=== PATIENT | male | born 1950 | race Caucasian/White ===

== ENCOUNTER 2016-10-24 12:25 | Day surgery (SDCO) | payer OTHER ==
[~2016-10-24] VITALS: Ht 167.6 cm; Wt 87.1 kg
[2016-10-24 13:14] LABS: BASOPHIL 0.2 % (0-2); EOSINOPHIL 0.1 % (0-7); HCT 36.2 % (42.0-52.0); HGB 12.7 g/dl (13.2-18.0); LYMPHOCYTE 28.1 % (15-48); MCH 32.2 pg (25.0-31.0); MCHC 35.1 g/dL (32.0-36.0); MCV 91.9 fL (78.0-100.0); MONOCYTE 8.8 % (0-12); NEUTROPHIL 62.8 % (41-80); PLT 388 K/uL (150-400); RBC 3.94 M/uL (4.70-6.00); RDW 13.8 % (11.5-14.0); WBC 12.2 K/uL (4.0-10.5)
[2016-10-24 13:24] LABS: INR 1.13 (0.9-1.2); PROTHROMBIN TIME 14.1 SECONDS (11.7-14.0); PTT 26.4 SECONDS (23.2-31.4)
[2016-10-24 13:37] LABS: BILIRUBIN NEGATIVE (NEGATIVE); BLOOD NEGATIVE Ery/uL (NEGATIVE); CLARITY CLEAR (CLEAR); COLOR YELLOW (YELLOW); GLUCOSE (U) NORMAL (NORMAL); KETONE (U) NEGATIVE (NEGATIVE); LEUKOCYTES NEGATIVE Leu/uL (NEGATIVE); NITRITE NEGATIVE (NEGATIVE); PROTEIN NEGATIVE (NEGATIVE); UROBILINOGEN 0.2 mg/dL (0.2-1.0); pH 5.5 (5.0-9.0)
[2016-10-24 13:41] LABS: ALBUMIN 4.2 g/dL (3.4-4.8); BILIRUBIN - TOTAL 0.9 mg/dL (0.1-1.0); CREATININE 0.9 mg/dL (0.7-1.2); GLOBULIN (CALCULATION) 2.5 g/dL (2.2-4.2); LACTIC ACID 2.4 mmol/L (0.5-2.2); POTASSIUM 5.2 mmol/L (3.5-5.1); TOTAL PROTEIN 6.7 g/dL (6.4-8.3)
[2016-10-24 23:07] LABS: HCT 32.8 % (42.0-52.0); HGB 11.4 g/dl (13.2-18.0); MCH 32.1 pg (25.0-31.0); MCHC 34.8 g/dL (32.0-36.0); MCV 92.4 fL (78.0-100.0); MPV 8.8 fL (6.0-9.5); RBC 3.55 M/uL (4.70-6.00); RDW 14.1 % (11.5-14.0); WBC 10.9 K/uL (4.0-10.5)
[2016-10-25 04:29] LABS: HCT 30.5 % (42.0-52.0); HGB 10.6 g/dl (13.2-18.0); MCH 32.5 pg (25.0-31.0); MCHC 34.8 g/dL (32.0-36.0); MCV 93.6 fL (78.0-100.0); MPV 8.7 fL (6.0-9.5); RBC 3.26 M/uL (4.70-6.00); WBC 7.7 K/uL (4.0-10.5)
[2016-10-25 04:39] LABS: CREATININE 0.9 mg/dL (0.7-1.2); MAGNESIUM 2.04 mg/dL (1.40-2.10); POTASSIUM 4.4 mmol/L (3.5-5.1)
[2016-10-25 23:54] LABS: HCT 32.8 % (42.0-52.0); HGB 10.9 g/dl (13.2-18.0); MCH 31.5 pg (25.0-31.0); MCHC 33.2 g/dL (32.0-36.0); MCV 94.8 fL (78.0-100.0); MPV 8.6 fL (6.0-9.5); RBC 3.46 M/uL (4.70-6.00); RDW 14.5 % (11.5-14.0); WBC 8.4 K/uL (4.0-10.5)
[2016-10-26 04:42] LABS: HGB 11.4 g/dl (13.2-18.0); MCH 32.9 pg (25.0-31.0); MCHC 34.5 g/dL (32.0-36.0); MCV 95.1 fL (78.0-100.0); MPV 8.8 fL (6.0-9.5); RBC 3.47 M/uL (4.70-6.00); RDW 14.6 % (11.5-14.0); WBC 8.5 K/uL (4.0-10.5)
[2016-10-26 05:04] LABS: CREATININE 0.9 mg/dL (0.7-1.2); POTASSIUM 3.8 mmol/L (3.5-5.1)
[2016-10-27 04:29] LABS: HCT 27.1 % (42.0-52.0); HGB 9.2 g/dl (13.2-18.0); MCHC 33.9 g/dL (32.0-36.0); MCV 97.1 fL (78.0-100.0); MPV 8.3 fL (6.0-9.5); RBC 2.79 M/uL (4.70-6.00); RDW 14.8 % (11.5-14.0); WBC 5.6 K/uL (4.0-10.5)
[2016-10-27 04:39] LABS: CREATININE 0.8 mg/dL (0.7-1.2); POTASSIUM 3.8 mmol/L (3.5-5.1)
[2016-10-27] MEDS ORDERED: PROTONIX 40MG T40 MG PO (11:27)
[2016-10-27] MEDS ORDERED: BETAPACE80 MG PO (11:27)
[2016-10-27] MEDS ORDERED: LIPITOR40 MG PO (11:28)
[2016-10-27] MEDS ORDERED: BUSPIRONE HCL15 MG PO (11:31)
[2016-10-27] MEDS ORDERED: ADVAIR 250-501 EACH INH (11:31)
[2016-10-27] MEDS ORDERED: ASPIRIN CHEWABL81 MG PO (11:31)
[2016-10-27] MEDS ORDERED: NITROQUIK SL0.4 MG SL (11:32)
[2016-10-27] MEDS ORDERED: COMBIVENT RESPIM4 GM INH (11:32)
[2017-03-30] MEDS ORDERED: COZAAR 25MG TAB25 MG PO (11:30)
[2017-03-30] MEDS ORDERED: CARDIZEM CD120 MG PO (12:54)
[2017-03-30] MEDS ORDERED: VENTOLIN HFA18 GM INH (13:30)
[2017-03-30] MEDS ORDERED: AMIODARONE HCL200 MG PO (13:31)
[2017-03-30] MEDS ORDERED: K-DUR20 MEQ PO (13:32)
[2017-03-30] MEDS ORDERED: XARELTO20 MG PO (13:32)
[2017-03-30] MEDS ORDERED: CLARITIN10 MG PO (13:32)
[2017-03-30] MEDS ORDERED: TOPROL XL50 MG PO (13:33)
== END 2016-10-27 13:32 | disposition home or self-care (01) ==
LOC: FER 12:25 → FMS 17:01
PROVIDERS: Emergency Medicine; Internal Medicine; ADMIT Internal Medicine Nephrology
DX: K29.50 Unspecified chronic gastritis without bleeding (principal); K21.9 Gastro-esophageal reflux disease without esophagitis; K57.30 Diverticulosis of large intestine without perforation or abscess without bleeding; I10 Essential (primary) hypertension; I25.10 Atherosclerotic heart disease of native coronary artery without angina pectoris; I48.92 Unspecified atrial flutter; F41.9 Anxiety disorder, unspecified; F32.9 Major depressive disorder, single episode, unspecified; J44.9 Chronic obstructive pulmonary disease, unspecified; Z95.5 Presence of coronary angioplasty implant and graft; Z90.49 Acquired absence of other specified parts of digestive tract; Z87.891 Personal history of nicotine dependence; Z80.1 Family history of malignant neoplasm of trachea, bronchus and lung; Z82.49 Family history of ischemic heart disease and other diseases of the circulatory system; Z82.3 Family history of stroke; Z79.82 Long term (current) use of aspirin; Z79.899 Other long term (current) drug therapy
CPT/HCPCS: 36415; 80048; 80053; 81003; 82150; 83605; 83690; 83735; 84484; 85025; 85610; 85730; 87088; 88305; 88312; 93005; 94010; 94640; C9113; G0378; J2405; J2704; Q9967

== ENCOUNTER 2016-11-09 12:24 | Inpatient (IN) | payer OTHER, SELFPAY ==
[~2016-11-09] VITALS: Ht 170.2 cm; Wt 89.0 kg
[~2016-11-09 12:24] MED LIST: ADVAIR 250-501 EACH INH; ASPIRIN CHEWABL81 MG PO; BETAPACE80 MG PO; BUSPIRONE HCL15 MG PO; COMBIVENT RESPIM4 GM INH; LIPITOR40 MG PO; NITROQUIK SL0.4 MG SL; PROTONIX 40MG T40 MG PO
[2016-11-09 13:18] LABS: BASOPHIL 0.4 % (0-2); EOSINOPHIL 0.4 % (0-7); HCT 28.2 % (42.0-52.0); HGB 8.6 g/dl (13.2-18.0); LYMPHOCYTE 24.7 % (15-48); MCH 30.3 pg (25.0-31.0); MCHC 30.5 g/dL (32.0-36.0); MCV 99.3 fL (78.0-100.0); MONOCYTE 5.4 % (0-12); MPV 8.5 fL (6.0-9.5); NEUTROPHIL 69.1 % (41-80); PLT 546 K/uL (150-400); RBC 2.84 M/uL (4.70-6.00); RDW 16.5 % (11.5-14.0)
[2016-11-09 13:21] LABS: WBC 11.1 K/uL (4.0-10.5)
[2016-11-09 13:38] LABS: ALBUMIN 3.9 g/dL (3.4-4.8); BILIRUBIN - TOTAL 0.4 mg/dL (0.1-1.0); CREATININE 0.8 mg/dL (0.7-1.2); GLOBULIN (CALCULATION) 3.3 g/dL (2.2-4.2); POTASSIUM 4.6 mmol/L (3.5-5.1); TOTAL PROTEIN 7.2 g/dL (6.4-8.3)
[2016-11-09 13:39] LABS: TROPONIN T < 0.010 ng/mL
[2016-11-09 13:41] LABS: PRO-BNP 756 pg/mL (0-125)
[2016-11-09 15:43] LABS: LACTIC ACID 2.4 mmol/L (0.5-2.2)
[2016-11-09 23:10] LABS: BILIRUBIN NEGATIVE (NEGATIVE); BLOOD NEGATIVE Ery/uL (NEGATIVE); CLARITY CLEAR (CLEAR); COLOR YELLOW (YELLOW); GLUCOSE (U) NORMAL (NORMAL); KETONE (U) NEGATIVE (NEGATIVE); LEUKOCYTES NEGATIVE Leu/uL (NEGATIVE); NITRITE NEGATIVE (NEGATIVE); PROTEIN NEGATIVE (NEGATIVE); SPECIFIC GRAVITY >=1.030 (1.001-1.030); UROBILINOGEN 0.2 mg/dL (0.2-1.0); pH 5.5 (5.0-9.0)
[2016-11-10 04:15] LABS: HCT 26.1 % (42.0-52.0); MCH 30.2 pg (25.0-31.0); MCHC 30.7 g/dL (32.0-36.0); MCV 98.5 fL (78.0-100.0); MPV 8.3 fL (6.0-9.5); RBC 2.65 M/uL (4.70-6.00); RDW 16.5 % (11.5-14.0); RETICULOCYTE COUNT 9.5 % (1.0-2.0); WBC 10.8 K/uL (4.0-10.5)
[2016-11-10 04:35] LABS: IRON 35 ug/dL (44-196); IRON % SATURATION 9 %SAT (20-50); TIBC (TOTAL IRON + UIBC) 382 U/L (228-428); UIBC 347 ug/dL (112-346)
[2016-11-10 04:38] LABS: CREATININE 0.8 mg/dL (0.7-1.2); POTASSIUM 4.4 mmol/L (3.5-5.1)
[2016-11-10 04:52] LABS: FOLIC ACID (SERUM) 17.6 ng/mL (5.6-45.8)
--- NOTE | 2016-11-11 01:39 | NUR ---
[address] BOGGS OF PT HAVING A RHYTHM CHANGE AND HEART ELEVATED,ORDERS GIVEN TO GET STAT EKG AND GIVE LOPRESSOR 5 MG IV NOW.
[2016-11-11 04:13] LABS: HCT 25.9 % (42.0-52.0); MCH 30.3 pg (25.0-31.0); MCHC 30.9 g/dL (32.0-36.0); MCV 98.1 fL (78.0-100.0); MPV 8.5 fL (6.0-9.5); RBC 2.64 M/uL (4.70-6.00); RDW 16.6 % (11.5-14.0); WBC 9.1 K/uL (4.0-10.5)
[2016-11-11 04:40] LABS: CREATININE 0.9 mg/dL (0.7-1.2); POTASSIUM 4.2 mmol/L (3.5-5.1)
[2016-11-12 06:54] LABS: HCT 25.8 % (42.0-52.0); MCH 29.8 pg (25.0-31.0); MCHC 30.2 g/dL (32.0-36.0); MCV 98.5 fL (78.0-100.0); MPV 8.9 fL (6.0-9.5); RDW 16.1 % (11.5-14.0); WBC 6.9 K/uL (4.0-10.5)
[2016-11-12 07:00] LABS: HGB 7.8 g/dl (13.2-18.0); RBC 2.62 M/uL (4.70-6.00)
[2016-11-12 07:13] LABS: CREATININE 0.7 mg/dL (0.7-1.2); POTASSIUM 4.1 mmol/L (3.5-5.1)
[2016-11-13 04:57] LABS: HCT 33.3 % (42.0-52.0); MCH 29.6 pg (25.0-31.0); MCHC 31.8 g/dL (32.0-36.0); MPV 8.7 fL (6.0-9.5); RBC 3.58 M/uL (4.70-6.00); RDW 18.2 % (11.5-14.0)
[2016-11-13 05:01] LABS: HGB 10.6 g/dl (13.2-18.0); WBC 15.5 K/uL (4.0-10.5)
[2016-11-13 05:15] LABS: CREATININE 0.8 mg/dL (0.7-1.2); POTASSIUM 4.5 mmol/L (3.5-5.1)
[2016-11-13] MEDS ORDERED: CELEXA40 MG PO (11:30)
[2016-11-13] MEDS ORDERED: HYDROCORTISONE PO (12:52)
[2016-11-13] MEDS ORDERED: FOLIC ACID1 MG PO (12:54)
[2016-11-13] MEDS ORDERED: VITAMIN B-1100 MG PO (12:55)
[2016-11-13] MEDS ORDERED: PREDNISONE 10MG10 MG PO (12:57)
[2016-11-13] MEDS ORDERED: AUGMENTIN 875-1 EACH PO (12:58)
[2017-03-30] MEDS ORDERED: COZAAR 25MG TAB25 MG PO (11:30)
[2017-03-30] MEDS ORDERED: CARDIZEM CD120 MG PO (12:54)
[2017-03-30] MEDS ORDERED: VENTOLIN HFA18 GM INH (13:30)
[2017-03-30] MEDS ORDERED: AMIODARONE HCL200 MG PO (13:31)
[2017-03-30] MEDS ORDERED: XARELTO20 MG PO (13:32)
[2017-03-30] MEDS ORDERED: CLARITIN10 MG PO (13:32)
[2017-03-30] MEDS ORDERED: K-DUR20 MEQ PO (13:32)
[2017-03-30] MEDS ORDERED: TOPROL XL50 MG PO (13:33)
== END 2016-11-13 12:40 | disposition home or self-care (01) | DRG 190 ==
LOC: FER 12:24 → FMS 17:00 → FTCU 17:00
PROVIDERS: Emergency Medicine; Internal Medicine; Internal Medicine Adolescent Medicine; ADMIT Internal Medicine
DX: J44.0 Chronic obstructive pulmonary disease with (acute) lower respiratory infection (principal); J18.9 Pneumonia, unspecified organism; I47.2 Ventricular tachycardia; I48.0 Paroxysmal atrial fibrillation; E87.1 Hypo-osmolality and hyponatremia; J44.1 Chronic obstructive pulmonary disease with (acute) exacerbation; I25.10 Atherosclerotic heart disease of native coronary artery without angina pectoris; Z95.5 Presence of coronary angioplasty implant and graft; D53.9 Nutritional anemia, unspecified; F10.10 Alcohol abuse, uncomplicated; F41.9 Anxiety disorder, unspecified; I10 Essential (primary) hypertension; E78.5 Hyperlipidemia, unspecified; E09.65 Drug or chemical induced diabetes mellitus with hyperglycemia; T38.0X5A Adverse effect of glucocorticoids and synthetic analogues, initial encounter; Z87.891 Personal history of nicotine dependence; Z80.9 Family history of malignant neoplasm, unspecified; Z82.49 Family history of ischemic heart disease and other diseases of the circulatory system
CPT/HCPCS: 36415; 36430; 36600; 71010; 71020; 71250; 80048; 80053; 81003; 82607; 82728; 82746; 82803; 82962; 83540; 83550; 83605; 83880; 84484; 85025; 85044; 86850; 86900; 86901; 86922; 87040; 87070; 87184; 87205; 87449; 87804; 87899; 93005; 94640; G0480; J1940; J1956; J2543; J2930; J3370; P9016

== ENCOUNTER 2016-12-22 02:46 | Emergency (ER) | payer OTHER, SELFPAY ==
[~2016-12-22 02:46] MED LIST changes: +AUGMENTIN 875-1 EACH PO; +CELEXA40 MG PO; +FOLIC ACID1 MG PO; +HYDROCORTISONE PO; +PREDNISONE 10MG10 MG PO; +VITAMIN B-1100 MG PO
[2016-12-22 03:05] LABS: BASOPHIL 0.7 % (0-2); EOSINOPHIL 2.8 % (0-7); HCT 37.8 % (42.0-52.0); HGB 12.2 g/dl (13.2-18.0); LYMPHOCYTE 33.9 % (15-48); MCH 28.4 pg (25.0-31.0); MCHC 32.3 g/dL (32.0-36.0); MCV 88.1 fL (78.0-100.0); MONOCYTE 10.5 % (0-12); MPV 8.2 fL (6.0-9.5); NEUTROPHIL 52.1 % (41-80); PLT 344 K/uL (150-400); RBC 4.29 M/uL (4.70-6.00); RDW 16.5 % (11.5-14.0); WBC 7.2 K/uL (4.0-10.5)
[2016-12-22 03:23] LABS: INR 1.12 (0.9-1.2); PTT 24.4 SECONDS (23.2-31.4)
[2016-12-22 03:25] LABS: ALBUMIN 3.6 g/dL (3.4-4.8); BILIRUBIN - TOTAL 0.3 mg/dL (0.1-1.0); CKMB 2.07 ng/mL (0.97-4.94); GLOBULIN (CALCULATION) 2.4 g/dL (2.2-4.2); MAGNESIUM 1.82 mg/dL (1.40-2.10); TROPONIN T 0.02 ng/mL
[2017-03-30] MEDS ORDERED: COZAAR 25MG TAB25 MG PO (11:30)
[2017-03-30] MEDS ORDERED: CARDIZEM CD120 MG PO (12:54)
[2017-03-30] MEDS ORDERED: VENTOLIN HFA18 GM INH (13:30)
[2017-03-30] MEDS ORDERED: AMIODARONE HCL200 MG PO (13:31)
[2017-03-30] MEDS ORDERED: K-DUR20 MEQ PO (13:32)
[2017-03-30] MEDS ORDERED: XARELTO20 MG PO (13:32)
[2017-03-30] MEDS ORDERED: CLARITIN10 MG PO (13:32)
[2017-03-30] MEDS ORDERED: TOPROL XL50 MG PO (13:33)
== END 2016-12-22 08:20 | disposition other institution (70) ==
LOC: FER 02:46
PROVIDERS: Emergency Medicine
DX: I48.91 Unspecified atrial fibrillation (principal); J44.9 Chronic obstructive pulmonary disease, unspecified; E78.5 Hyperlipidemia, unspecified; Z79.82 Long term (current) use of aspirin; Z79.899 Other long term (current) drug therapy; Z95.5 Presence of coronary angioplasty implant and graft
CPT/HCPCS: 36415; 71010; 80053; 82550; 82553; 83735; 83874; 83880; 84484; 85025; 85610; 85730; 93005; 96372; J2270

== ENCOUNTER 2017-01-04 09:51 | Emergency (ER) | payer OTHER ==
[2017-01-04 10:49] LABS: BASOPHIL 0.2 % (0-2); EOSINOPHIL 0.1 % (0-7); HCT 36.3 % (42.0-52.0); HGB 11.6 g/dl (13.2-18.0); LYMPHOCYTE 11.9 % (15-48); MCH 28.2 pg (25.0-31.0); MCV 88.1 fL (78.0-100.0); MONOCYTE 7.6 % (0-12); MPV 8.8 fL (6.0-9.5); NEUTROPHIL 80.2 % (41-80); PLT 358 K/uL (150-400); RBC 4.12 M/uL (4.70-6.00); RDW 16.3 % (11.5-14.0); WBC 14.5 K/uL (4.0-10.5)
[2017-01-04 10:54] LABS: INR 1.06 (0.9-1.2); PROTHROMBIN TIME 13.4 SECONDS (11.7-14.0); PTT 27.5 SECONDS (23.2-31.4)
[2017-01-04 11:04] LABS: ALBUMIN 3.8 g/dL (3.4-4.8); BILIRUBIN - TOTAL 0.8 mg/dL (0.1-1.0); GLOBULIN (CALCULATION) 3.2 g/dL (2.2-4.2)
[2017-01-04 11:15] LABS: LACTIC ACID 2.3 mmol/L (0.5-2.2); TROPONIN T 0.344 ng/mL
[2017-01-04 12:03] LABS: BILIRUBIN NEGATIVE (NEGATIVE); BLOOD NEGATIVE Ery/uL (NEGATIVE); CLARITY CLEAR (CLEAR); COLOR YELLOW (YELLOW); GLUCOSE (U) NORMAL (NORMAL); KETONE (U) NEGATIVE (NEGATIVE); LEUKOCYTES NEGATIVE Leu/uL (NEGATIVE); NITRITE NEGATIVE (NEGATIVE); PROTEIN NEGATIVE (NEGATIVE); UROBILINOGEN 0.2 mg/dL (0.2-1.0)
[2017-03-30] MEDS ORDERED: COZAAR 25MG TAB25 MG PO (11:30)
[2017-03-30] MEDS ORDERED: CARDIZEM CD120 MG PO (12:54)
[2017-03-30] MEDS ORDERED: VENTOLIN HFA18 GM INH (13:30)
[2017-03-30] MEDS ORDERED: AMIODARONE HCL200 MG PO (13:31)
[2017-03-30] MEDS ORDERED: CLARITIN10 MG PO (13:32)
[2017-03-30] MEDS ORDERED: XARELTO20 MG PO (13:32)
[2017-03-30] MEDS ORDERED: K-DUR20 MEQ PO (13:32)
[2017-03-30] MEDS ORDERED: TOPROL XL50 MG PO (13:33)
== END 2017-01-04 14:01 | disposition other institution (70) ==
LOC: FER 09:51
PROVIDERS: Emergency Medicine
DX: I11.0 Hypertensive heart disease with heart failure (principal); I50.21 Acute systolic (congestive) heart failure; R82.90 Unspecified abnormal findings in urine; I25.10 Atherosclerotic heart disease of native coronary artery without angina pectoris; I48.91 Unspecified atrial fibrillation; J44.9 Chronic obstructive pulmonary disease, unspecified; E78.5 Hyperlipidemia, unspecified; Z79.82 Long term (current) use of aspirin; Z79.02 Long term (current) use of antithrombotics/antiplatelets; Z79.51 Long term (current) use of inhaled steroids; Z79.899 Other long term (current) drug therapy; Z95.5 Presence of coronary angioplasty implant and graft
CPT/HCPCS: 36415; 36600; 71020; 80053; 81003; 82803; 83605; 83880; 84484; 85025; 85610; 85730; 86403; 87040; 87070; 87077; 87088; 87186; 87205; 87804; 87899; 93005; 94640; 96372; J1940; J2930